=== PATIENT | male | born 1945 | race Caucasian/White ===

== ENCOUNTER 2019-04-05 23:00 | Inpatient (IN) | payer MEDICARE ==
[~2019-04-05] VITALS: Ht 177.8 cm; Wt 78.7 kg
[2019-04-05 23:02] VITALS: Ht 177.8 cm; Wt 78.7 kg
[2019-04-05 23:43] LABS: microscopic required? NO
[2019-04-05 23:43] LABS: BASOPHIL % 0.4 % (0-2); PLATELET COUNT 172 x10^3mcL (130-400); RED CELL DISTRIBUTION WIDTH 13.4 % (11.5-14.5)
[2019-04-05 23:54] LABS: urine erythrocyte NEGATIVE (NEGATIVE)
[2019-04-06] VITALS (7 sets, daily range): BP systolic 89–112; BP diastolic 48–54
[2019-04-06 00:26] LABS: CARBON DIOXIDE 24.9 mmol/L (21-32); CHLORIDE SERUM 103 mmol/L (98-107); GLUCOSE SERUM 361 mg/dL (74-106); POTASSIUM SERUM 4.4 mmol/L (3.5-5.1); SODIUM SERUM 135 mmol/L (136-145)
[2019-04-06 00:27] LABS: ALBUMIN 2.8 g/dL (3.4-5.0); ALKALINE PHOSPHATASE 70 U/L (46-116); ALT/SGPT 23 U/L (16-63); AST/SGOT 14 U/L (15-37); BILIRUBIN TOTAL 0.3 mg/dL (0.20-1.00); CALCIUM 8.4 mg/dL (8.5-10.1); CK-MB 1.3 ng/mL (0-3.6); CREATININE SERUM 1.2 mg/dL (0.7-1.3); TOTAL PROTEIN, SERUM 5.2 g/dL (6.4-8.2)
[2019-04-06 00:45] LABS: BASOPHIL % 0.3 % (0-2); PLATELET COUNT 160 x10^3mcL (130-400); RED CELL DISTRIBUTION WIDTH 13.3 % (11.5-14.5)
[2019-04-06] MEDS ORDERED: ZESTRIL5 MG PO (02:45)
[2019-04-06] MEDS ORDERED: FLECAINIDE ACET50 MG PO (02:46)
[2019-04-06] MEDS ORDERED: GLIPIZIDE XL5 M2 PO (02:46)
[2019-04-06] MEDS ORDERED: FORTAMET1000 MG PO (02:47)
[2019-04-06] MEDS ORDERED: ASPIRIN FOR CHI81 M1 PO (02:47)
[2019-04-06 04:04] LABS: CHOLESTEROL/HDL RATIO 1.6
[2019-04-06 06:30] LABS: BASOPHIL % 0.3 % (0-2); PLATELET COUNT 140 x10^3mcL (130-400); RED CELL DISTRIBUTION WIDTH 13.1 % (11.5-14.5)
[2019-04-06 07:26] LABS: CARBON DIOXIDE 22.9 mmol/L (21-32); CHLORIDE SERUM 106 mmol/L (98-107); GLUCOSE SERUM 211 mg/dL (74-106); MAGNESIUM 1.5 mg/dL (1.8-2.4); PHOSPHOROUS 2.7 mg/dL (2.5-4.9); SODIUM SERUM 138 mmol/L (136-145)
[2019-04-06] MEDS ORDERED: FERL PO (11:56)
[2019-04-06 12:50] LABS: BASOPHIL % 0.2 % (0-2); PLATELET COUNT 131 x10^3mcL (130-400); RED CELL DISTRIBUTION WIDTH 13.2 % (11.5-14.5)
[2019-04-06 23:27] LABS: BASOPHIL % 0.3 % (0-2); PLATELET COUNT 133 x10^3mcL (130-400); RED CELL DISTRIBUTION WIDTH 14.2 % (11.5-14.5)
[2019-04-07 06:16] VITALS: BP 123/60
[2019-04-07 06:35] LABS: BASOPHIL % 0.7 % (0-2); RED CELL DISTRIBUTION WIDTH 13.9 % (11.5-14.5)
[2019-04-07 07:01] LABS: PLATELET COUNT 125 x10^3mcL (130-400)
[2019-04-07 07:29] LABS: CALCIUM 8.8 mg/dL (8.5-10.1); CHLORIDE SERUM 104 mmol/L (98-107); CREATININE SERUM 1.1 mg/dL (0.7-1.3); GLUCOSE SERUM 268 mg/dL (74-106); MAGNESIUM 1.6 mg/dL (1.8-2.4); PHOSPHOROUS 2.7 mg/dL (2.5-4.9); SODIUM SERUM 139 mmol/L (136-145)
[2019-04-07 09:04] VITALS: BP 101/56
[2019-04-07 13:07] VITALS: BP 107/60
[2019-04-07 16:53] VITALS: BP 107/60
[2019-04-07 17:18] VITALS: BP 122/87
[2019-04-07 20:22] VITALS: BP 101/59
[2019-04-08 05:20] LABS: BASOPHIL % 1.2 % (0-2); RED CELL DISTRIBUTION WIDTH 13.9 % (11.5-14.5)
[2019-04-08 05:21] LABS: PLATELET COUNT 121 x10^3mcL (130-400)
[2019-04-08 05:55] VITALS: BP 97/51
[2019-04-08 06:51] LABS: CALCIUM 8.6 mg/dL (8.5-10.1); CARBON DIOXIDE 28.5 mmol/L (21-32); CHLORIDE SERUM 105 mmol/L (98-107); CREATININE SERUM 1.1 mg/dL (0.7-1.3); GLUCOSE SERUM 254 mg/dL (74-106); POTASSIUM SERUM 3.9 mmol/L (3.5-5.1); SODIUM SERUM 139 mmol/L (136-145)
[2019-04-08 08:56] VITALS: BP 113/47
[2019-04-08 13:11] VITALS: BP 94/53
[2019-04-08 16:27] VITALS: BP 121/55
== END 2019-04-08 18:10 | disposition short-term general hospital (02) | DRG 378 ==
LOC: ED 23:00 → DU 04-06 02:56 → EDBEDREQ 04-06 02:59 → DU 04-06 03:50
PROVIDERS: Emergency Medicine; ADMIT Student in an Organized Health Care Education/Training Program
DX: K57.33 Diverticulitis of large intestine without perforation or abscess with bleeding (principal); D62 Acute posthemorrhagic anemia; E44.0 Moderate protein-calorie malnutrition; E87.2 Acidosis; E11.65 Type 2 diabetes mellitus with hyperglycemia; I48.0 Paroxysmal atrial fibrillation; I10 Essential (primary) hypertension; Z79.82 Long term (current) use of aspirin; Z68.25 Body mass index [BMI] 25.0-25.9, adult; Z87.891 Personal history of nicotine dependence; Z79.01 Long term (current) use of anticoagulants; Z79.84 Long term (current) use of oral hypoglycemic drugs
CPT/HCPCS: 82962; 97116-GP; C9113; G0378; J1956; J3490; J7030; J7050; P9016; Q0092; Q0163